=== PATIENT | female | born 1945 | race Caucasian/White ===

== ENCOUNTER 2021-06-10 16:13 | Emergency (ER) | payer SELFPAY ==
[~2021-06-10] VITALS: Ht 156.2 cm; Wt 64.9 kg
[2021-06-10 16:31] VITALS: BP 121/64
--- NOTE | 2021-06-10 16:39 | NUR ---
JASON. HANDED ON URINE CUP.
--- NOTE | 2021-06-10 17:22 | NUR ---
BIB SON C/O GENERALIZED WEAKNESS, 8 AGUDELO,N/V X 1 WEEK. BLOOD SUGAR 170 AT THIS TIME. PMH: DM, HTN
[2021-06-10] MEDS ORDERED: ACETAMINOPHEN EXTRA STRENGTH 500 MG TAB PO ONE (17:45)
[2021-06-10] MEDS ORDERED: ONDANSETRON 4 MG ODT PO ONE (17:45)
[2021-06-10 18:13] LABS: BASOPHILS % (AUTO) 0.4 % (0.0-2.0); EOSINOPHILS # (AUTO) 0.1 K/uL (0-0.4); EOSINOPHILS % (AUTO) 0.9 % (0.0-4.0); HEMATOCRIT 37.9 % (36-48); HEMOGLOBIN 12.8 g/dL (12.0-16.0); LYMPHOCYTES # (AUTO) 2.7 K/uL (2.5-16.5); LYMPHOCYTES % (AUTO) 36.1 % (20.5-51.1); MEAN CORPUSCULAR HEMOGLOBIN 29 pg (27-31); MEAN CORPUSCULAR HGB CONC 34 g/dL (33-37); MEAN CORPUSCULAR VOLUME 84.6 fL (80-94); MONOCYTES # (AUTO) 0.4 K/uL (0.8-1.0); MONOCYTES % (AUTO) 4.9 % (1.7-9.3); NEUTROPHILS # (AUTO) 4.3 K/uL (1.8-7.7); NEUTROPHILS % (AUTO) 57.7 % (42.2-75.2); PLATELET COUNT (AUTO) 214 K/uL (140-450); RED BLOOD CELL COUNT(AUTO) 4.47 MIL/uL (4.20-5.40); RED CELL DISTRIBUTION WIDTH 13.8 % (11.6-13.7); WHITE BLOOD COUNT (AUTO) 7.5 K/uL (4.8-10.8)
--- NOTE | 2021-06-10 18:36 | NUR ---
PT AMB TO BED12.
[2021-06-10] MEDS ORDERED: METOCLOPRAMIDE 10 MG/2 ML INJ VIAL IVP ONE (18:50)
[2021-06-10] MEDS ORDERED: NACL 0.9% 1,000 ML IV ONE (18:50)
[2021-06-10] MEDS ORDERED: diphenhydrAMINE 50 MG/ML VIAL IVP ONE (18:50)
[2021-06-10] MEDS ORDERED: DEXAMETHASONE 10 MG/ML VIAL IVP ONE (18:50)
[2021-06-10] MEDS ORDERED: cephALEXin 500 MG CAP PO ONE (18:55)
[2021-06-10 18:56] LABS: ALBUMIN 4.1 g/dL (3.4-5.0); ANION GAP 10.9 (8-16); ASPARTATE AMINOTRANSFERASE 30 U/L (15-37); CARBON DIOXIDE 29.7 mmol/L (21-32); CHLORIDE 103 mmol/L (98-107); CREATININE 0.7 mg/dL (0.6-1.3); GLUCOSE 165 mg/dL (74-106); LIPASE 117 U/L (73-393); POTASSIUM 4.6 mmol/L (3.5-5.1); SODIUM SERUM 139 mmol/L (136-145); TOTAL BILIRUBIN 0.4 mg/dL (0.0-1.0); UREA NITROGEN, BLOOD 16 mg/dL (7-18)
--- NOTE | 2021-06-10 19:32 | NUR ---
pt amubulated to the bathroom.
--- NOTE | 2021-06-10 19:55 | NUR ---
PT TAKEN TO RADIOLOGY
--- NOTE | 2021-06-10 20:09 | NUR ---
PT RETURN FROM RADIOLOGY
[2021-06-10] MEDS ORDERED: ACET-2619 PO (21:17)
[2021-06-10] MEDS ORDERED: CEPH-588 PO (21:21)
--- NOTE | 2021-06-10 21:40 | NUR ---
IV removed, catheter intact and site benign. Applied folded 4x4 gauze and tape to stop bleeding.
[2021-06-10 21:41] VITALS: BP 113/51
--- NOTE | 2021-06-10 21:57 | NUR ---
Patient discharged with v/s stable. Written and verbal after care instructions given and explained. Patient alert, oriented and verbalized understanding of instructions. Ambulatory with steady gait. All questions addressed prior to discharge. ID band removed. Patient advised to follow up with PMD. Rx of TYLENOL & KEFLEX given. Patient educated on indication of medication including possible reaction and side effects. Opportunity to ask questions provided and answered.
== END 2021-06-10 21:57 | disposition home or self-care (01) ==
LOC: MED 16:13
DX: S60.211A Contusion of right wrist, initial encounter (principal); S09.90XA Unspecified injury of head, initial encounter; N39.0 Urinary tract infection, site not specified; R53.1 Weakness; G44.209 Tension-type headache, unspecified, not intractable; E11.9 Type 2 diabetes mellitus without complications; I10 Essential (primary) hypertension; E78.00 Pure hypercholesterolemia, unspecified; Z87.891 Personal history of nicotine dependence; Z79.2 Long term (current) use of antibiotics; Z79.899 Other long term (current) drug therapy; W18.39XA Other fall on same level, initial encounter; Y92.89 Other specified places as the place of occurrence of the external cause; Y93.89 Activity, other specified; Y99.8 Other external cause status
CPT/HCPCS: 36415; 70450; 73130; 80053; 81002; 83690; 84484; 85025; 93005; 96361; 96374; 96375; 99285; J1100; J1200; J2765; J7030; Q0092; Q0162